=== PATIENT | female | born 1995 | race African-American/Black ===

== ENCOUNTER 2020-11-15 23:22 | Emergency (ER) | payer OTHER ==
[~2020-11-15] VITALS: Ht 152.4 cm; Wt 90.7 kg
[~2020-11-15 23:22] MED LIST: CIPROFLOXACIN500 M1 PO; FLEXERIL PO; IBUPROFEN 600600 M1 PO; NORCO 5-325 TA1 EACH PO
[2020-11-15] MEDS ORDERED: NOHOMEMEDICATIONS (23:32)
[2020-11-16 01:45] VITALS: BP 159/99
== END 2020-11-16 01:47 | disposition home or self-care (01) ==
LOC: ER 23:22
DX: M79.601 Pain in right arm (principal)